=== PATIENT | male | born 1985 | race Caucasian/White ===

== ENCOUNTER 2024-06-11 21:40 | Emergency (ER) | payer SELFPAY ==
[~2024-06-11] VITALS: Ht 180.3 cm; Wt 124.0 kg
[2024-06-11 21:49] VITALS: O2SAT 99
[2024-06-11 22:37] LABS: BASOPHILS % 0.3 % (0.0-2.0); EOSINOPHILS % 1.9 % (0.0-5.0); HEMATOCRIT. 38.1 % (42.0-52.0); LYMPHOCYTES % 25.6 % (20.0-50.0); MEAN CORPUSCULAR HEMOGLOBIN 30.9 pg (28.0-32.0); MEAN CORPUSCULAR HGB CONC 34.2 g/dL (31.0-37.0); MEAN CORPUSCULAR VOLUME 90.5 fL (80.0-94.0); MEAN PLATELET VOLUME 7.7 fl (7.4-10.4); NEUTROPHILS % 63.2 % (40.0-76.0); PLATELET 273 x1000/uL (130-400); RED BLOOD CELL COUNT 4.21 mill/uL (4.7-6.1); RED CELL DISTRIBUTION WIDTH 14.6 % (11.6-14.6); WHITE BLOOD COUNT 6.2 x1000/uL (4.5-11.0)
[2024-06-11 22:41] LABS: CHLORIDE 107 mEq/L (98-107); POTASSIUM 3.2 mEq/L (3.5-5.1); SODIUM 140 mEq/L (136-145)
[2024-06-11 22:42] LABS: CARBON DIOXIDE 26 mEq/L (21-32)
[2024-06-11 22:43] LABS: CALCIUM 9.3 mg/dL (8.7-10.4)
[2024-06-11 22:48] LABS: GLUCOSE 132 mg/dL (70-105); UREA NITROGEN BLOOD 9 mg/dL (9-23)
[2024-06-11 22:49] LABS: ACETAMINOPHEN < 2 ug/mL (10-30)
[2024-06-11 22:50] VITALS: TEMP 98.4
[2024-06-11 22:52] LABS: ETHANOL BLOOD < 10 mg/dL (<10)
[2024-06-12] MEDS: SODIUM CHLORIDE 0.9% 1,000 ML IV ONE (00:13)
[2024-06-12 05:37] VITALS: BP 103/63; PULSE 60; RESP 17
== END 2024-06-12 06:04 | disposition home or self-care (01) ==
LOC: ER 21:40
DX: T43.651A Poisoning by methamphetamines accidental (unintentional), initial encounter (principal); F15.10 Other stimulant abuse, uncomplicated; R41.82 Altered mental status, unspecified; X58.XXXA Exposure to other specified factors, initial encounter
CPT/HCPCS: 80048; 80307; 80329; 80320; 85025; 36415; 99285; 96360; 96361; J7030; G0480